=== PATIENT | female | born 1985 | race Caucasian/White ===

== ENCOUNTER 2019-01-19 21:53 | Emergency (ER) | payer OTHER, MEDICAID ==
[~2019-01-19] VITALS: Ht 167.6 cm; Wt 90.7 kg
[2019-01-19 22:05] VITALS: BP 132/82
--- NOTE | 2019-01-19 22:05 | NUR ---
TO BED # 09 AMBULATORY
--- NOTE | 2019-01-19 22:24 | NUR ---
33 YO F BIB SELF PRESENTS TO ED C/O SUBJECTIVE FEVER, CHILLS OFF AND ON X SINCE THURSDAY WITH DIARRHEA X 3 STARTING TODAY. PT AFEBRILE AT THIS TIME. DENIES NV, SOB. PT ALSO STATES "I FEEL WEIRD. MY THROAT AND CHEST STARTED HURTING THIS AFTERNOON LIKE I'M HAVING ANXIETY. IT FEELS COLD AND BURNING INSIDE". -- PT AWAKE, A/O X 4. CALM, COOPERATIVE. BEHAVIOR AGE APPROPRIATE. ANSWERS QUESTIONS IN CLEAR, FULL SENTENCES. -- SKIN PINK, WARM, DRY. BREATHING EVEN, UNLABORED PMH-- CHOLECYSTECTOMY, 2013 RX-- TYLENOL @ 1999
--- NOTE | 2019-01-19 23:22 | NUR ---
DR. LARSEN EVALUATING AT BEDSIDE.
--- NOTE | 2019-01-19 23:39 | NUR ---
X-Ray at bedside.
[2019-01-20 00:07] VITALS: BP 131/79
--- NOTE | 2019-01-20 00:07 | NUR ---
Patient discharged with v/s stable. Written and verbal after care instructions given and explained. Patient alert, oriented and verbalized understanding of instructions. Ambulatory with steady gait. All questions addressed prior to discharge. ID band removed. Patient advised to follow up with PMD. Rx of KENDELL HAMILTON given. Patient educated on indication of medication including possible reaction and side effects. Opportunity to ask questions provided and answered.
== END 2019-01-20 00:07 | disposition home or self-care (01) ==
LOC: MED 21:53
DX: J06.9 Acute upper respiratory infection, unspecified (principal); Z90.49 Acquired absence of other specified parts of digestive tract
CPT/HCPCS: 71045; 99283

== ENCOUNTER 2019-03-25 11:59 | Emergency (ER) | payer MEDICAID, OTHER ==
[~2019-03-25] VITALS: Ht 162.6 cm; Wt 103.1 kg
[2019-03-25 12:12] VITALS: BP 139/76
--- NOTE | 2019-03-25 12:17 | NUR ---
PT ambulated to lobby at this time w/ VSS
--- NOTE | 2019-03-25 14:17 | NUR ---
Patient ambulated to bed 3. RN evaluating patient at bedside.
--- NOTE | 2019-03-25 14:28 | NUR ---
33 Y/O F C/O CONGESTION, FEVER, CHILLS FOR 3 DAYS. PT HAS TAKEN OVER THE COUNTER MEDICATION AT HOME FOR FEVER, STATES HAS NOT HELPED SYMPTOMS. PT STATES NO ONE ELSE IS SICK IN THE HOME. DENIES PAIN, N/V. PT POSITIONED FOR COMFORT, BED LOWERED, X1 SIDE RAIL IN PLACE. MEDHX: NONE NKA
--- NOTE | 2019-03-25 14:37 | NUR ---
Dr. Cook is evaluating the patient at bedside.
[2019-03-25 15:46] VITALS: BP 127/64
--- NOTE | 2019-03-25 15:46 | NUR ---
Patient discharged with v/s stable. Written and verbal after care instructions given and explained. Patient alert, oriented and verbalized understanding of instructions. Ambulatory with steady gait. All questions addressed prior to discharge. ID band removed. Patient advised to follow up with PMD. Rx of IBUPROFEN AND CODEINE/PROMETHAZINE given. Patient educated on indication of medication including possible reaction and side effects. Opportunity to ask questions provided and answered.
== END 2019-03-25 15:46 | disposition home or self-care (01) ==
LOC: MED 11:59
DX: J11.1 Influenza due to unidentified influenza virus with other respiratory manifestations (principal)
CPT/HCPCS: 99283

== ENCOUNTER 2019-05-18 07:20 | Emergency (ER) | payer MEDICAID ==
[~2019-05-18] VITALS: Ht 162.6 cm; Wt 104.3 kg
--- NOTE | 2019-05-18 07:30 | NUR ---
PT TO ER BED 12
[2019-05-18 07:33] VITALS: BP 134/76
--- NOTE | 2019-05-18 07:35 | NUR ---
Note undone in EDM - 05/18/19 at 0911 by THAIS Pt has chronic sciatica pain on LLE. Last night pt had s/p mechanical trip and fall over cords at home. Denies LOC. Pain /, constant sharp. Patient discharged with v/s stable. Written and verbal after care instructions given and explained. Patient alert, oriented and verbalized understanding of instructions. Ambulatory with steady gait. All questions addressed prior to discharge. ID band removed. Patient advised to follow up with PMD. Rx of valium,ibu,norco given. Patient educated on indication of medication including possible reaction and side effects. Opportunity to ask questions provided and answered.
--- NOTE | 2019-05-18 07:36 | NUR ---
Pt has chronic sciatica pain on LLE. Last night pt had s/p mechanical trip and fall over cords at home. Denies LOC. Pain 10/10, constant sharp. PT DENIES N/V/D; SKIN IS INTACT, PINK/WARM/DRY; AAOX4, PERRL, WITH EVEN AND STEADY GAIT; LUNGS CLEAR BL, BREATHING UNLABORED; HR EVEN AND REGULAR, BL PERIPHERAL PULSES PRESENT; BS ACTIVE X4, NO TENDERNESS TO PALPAtion. RESONANT TO PERCUSSION; PT DENIES ANY FEVER, CP, SOB, OR COUGH AT THIS TIME; PT STATES 6/10 PAIN AT THIS TIME; VSS; PATIENT POSITIONED FOR COMFORT; HOB ELEVATED; BEDRAILS UP X2; BED DOWN.
[2019-05-18] MEDS ORDERED: KETOROLAC 30 MG/ML VIAL IM ONE (08:15)
--- NOTE | 2019-05-18 08:55 | NUR ---
Patient discharged with v/s stable. Written and verbal after care instructions given and explained. Patient alert, oriented and verbalized understanding of instructions. Ambulatory with steady gait. All questions addressed prior to discharge. ID band removed. Patient advised to follow up with PMD. Rx of valium,ibu,norco given. Patient educated on indication of medication including possible reaction and side effects. Opportunity to ask questions provided and answered.
[2019-05-18 09:06] VITALS: BP 124/70
== END 2019-05-18 08:55 | disposition home or self-care (01) ==
LOC: MED 07:20
DX: M54.41 Lumbago with sciatica, right side (principal); M62.830 Muscle spasm of back; M79.605 Pain in left leg
CPT/HCPCS: 81002; 81025; 96372; 99283; J1885

== ENCOUNTER 2023-11-27 22:17 | Emergency (ER) | payer MEDICAID, OTHER ==
[~2023-11-27] VITALS: Ht 162.6 cm; Wt 74.8 kg
[2023-11-27 22:36] VITALS: BP 139/75; PULSE 74; RESP 16; TEMP 97.2; O2SAT 100
[2023-11-27] MEDS ORDERED: ONDA-188 SL (23:12)
--- NOTE | 2023-11-27 23:15 | NUR ---
37/F BIB FAMILY MEMBER FROM HOME C/O HEAD INJURY AFTER HITTING HEAD ON [place] YESTERDAY AT WORK. PATIENT DENIES LOC BUT WITH NOTED FRONTAL HEADACHE 8/10, LIGHTHEADEDNESS, BLURRY VISION AND NAUSEA. DENIES CHEST PAIN, SOB, ABDOMINAL PAIN, VOMITING/DIARRHEA. PMHX: DENIES NKA
[2023-11-27] MEDS: ONDANSETRON 4 MG ODT PO ONE (23:24)
[2023-11-27] MEDS: ACETAMINOPHEN 325 MG TAB PO ONE (23:25)
--- NOTE | 2023-11-27 23:31 | NUR ---
Unable to do pain reassessment for Tylenol as patient was discharged at 2331.
--- NOTE | 2023-11-27 23:31 | NUR ---
Patient discharged. Written and verbal after care instructions given and explained. Patient alert, oriented and verbalized understanding of instructions. Ambulatory with steady gait. All questions addressed prior to discharge. ID band removed. Patient advised to follow up with PMD. Rx of Zofran given. Patient educated on indication of medication including possible reaction and side effects. Opportunity to ask questions provided and answered.
== END 2023-11-27 23:31 | disposition home or self-care (01) ==
LOC: MED 22:17
DX: F07.81 Postconcussional syndrome (principal); M54.2 Cervicalgia; R07.9 Chest pain, unspecified; R42 Dizziness and giddiness; Z98.890 Other specified postprocedural states; Z79.899 Other long term (current) drug therapy
CPT/HCPCS: 82948; 99283; Q0162